=== PATIENT | female | born 1955 | race Caucasian/White ===

== ENCOUNTER 2017-03-26 13:43 | Emergency (ER) | payer OTHER ==
[~2017-03-26] VITALS: Ht 166.4 cm; Wt 77.5 kg
[2017-03-26 14:02] VITALS: BP 143/85
[2017-03-26] MEDS ORDERED: SODIUM CHLORIDE 0.9% 1,000 ML IV ONE (14:37)
[2017-03-26] MEDS ORDERED: SODIUM CHLORIDE 0.9% 1,000ML IVBOLUS ONE (15:00)
[2017-03-26] MEDS ORDERED: ONDANSETRON 2MG/ML, 2ML IVPush ONE (15:00)
[2017-03-26] MEDS ORDERED: FAMOTIDINE 20 MG/2 ML IVP ONE (15:00)
[2017-03-26 15:07] LABS: MEAN CORPUSCULAR HEMOGLOBIN 29.2 pg (27.0-34.8); MEAN CORPUSCULAR HGB CONC 33.9 g/dL (32.4-35.8); MEAN CORPUSCULAR VOLUME 86.3 fL (80-100); MEAN PLATELET VOLUME 9.2 fL (7.4-10.4); PLATELET COUNT 333 x10^3/uL (130-400); RED BLOOD COUNT 5.29 x10^6/uL (3.82-5.3); RED CELL DISTRIBUTION WIDTH 13.7 % (9.6-15.2)
[2017-03-26 15:17] LABS: ALANINE AMINOTRANSFERASE 39 U/L (12-78); ALBUMIN 3.9 g/dL (3.4-5.0); ANION GAP 9 mmol/L (5-15); CALCIUM 9.2 mg/dL (8.5-10.1); CHLORIDE 106 mmol/L (98-107)
[2017-03-26 15:19] LABS: ALKALINE PHOSPHATASE 121 U/L (45-117); BILIRUBIN,TOTAL 0.5 mg/dL (0.2-1.0); TOTAL PROTEIN 8.2 g/dL (6.4-8.2)
[2017-03-26 15:55] LABS: BASOPHILS % (AUTO) 0 % (0-1); EOSINOPHILS # (AUTO) 0.04 x10^3/uL (0-0.4); EOSINOPHILS % (AUTO) 0 % (1-7); LYMPHOCYTES % (AUTO) 2 % (22-44); MD SCAN; MONOCYTES # (AUTO) 0.08 x10^3/uL (0.2-0.8); MONOCYTES % (AUTO) 1 % (2-9); NEUTROPHILS # (AUTO) 17.35 x10^3/uL (1.8-6.8); NEUTROPHILS % (AUTO) 98 % (42-75)
[2017-03-26] MEDS ORDERED: ONDANSETRON 2MG/ML, 2ML ONE (16:30)
[2017-03-26] MEDS ORDERED: MORPHINE SULFATE 4 MG/ML, 1ML ONE (16:30)
[2017-03-26] MEDS ORDERED: morphine SULFATE 10 MG/ML, 1ML IVPush ONE (16:30)
[2017-03-26] MEDS ORDERED: FAMOTIDINE 20 MG/2 ML ONE (16:31)
[2017-03-26] MEDS ORDERED: OMNIPAQUE 350 MG/ML, 100ML BOTTLE ONE (17:22)
[2017-03-26 18:49] LABS: MICROSCOPIC AUTO
[2017-03-26 18:55] LABS: CULTURE INDICATED? NO
[2017-03-26] MEDS ORDERED: KETOROLAC 30 MG/1 ML IVPush ONE (19:00)
[2017-03-26] MEDS ORDERED: METOCLOPRAMIDE 5 MG/ML, 2ML IVPush ONE (19:00)
[2017-03-26] MEDS ORDERED: KETOROLAC 30 MG/1 ML ONE (19:12)
[2017-03-26] MEDS ORDERED: METOCLOPRAMIDE 5 MG/ML, 2ML ONE (19:12)
[2017-03-26] MEDS ORDERED: PROMETHAZINE 25 MG/ML, 1ML ONE (19:38)
== END 2017-03-26 20:09 | disposition home or self-care (01) ==
LOC: ED 18:30
DX: R11.2 Nausea with vomiting, unspecified (principal); R19.7 Diarrhea, unspecified
CPT/HCPCS: 36415; 74177; 80053; 81001; 83690; 85025; 96361; 96374; 96375; 99285; J1885; J2270; J2405; J2765; J7030; Q9967; S0028